=== PATIENT | male | born 1995 | race Caucasian/White ===

== ENCOUNTER 2018-02-05 14:55 | Emergency (ER) | payer SELFPAY ==
[2018-02-05] MEDS ORDERED: TORAdol 30 mg Injection IM ONE (15:25)
[2018-02-05] MEDS ORDERED: TORAdol 30 mg Injection ONE (15:26)
--- NOTE | 2018-02-05 15:29 | ERPHSYRPT ---
- History of Present Illness Time Seen by Provider: 02/05/18 15:15 Source: patient Exam Limitations: no limitations Patient Subjective Stated Complaint: Pt states "I am not sure what happened but my right knee is swollen and it really hurts. I slept in the car funny on the way back, that is the only thing I can think of." Triage Nursing Assessment: PT alert and oriented X3, skin pwd. PT ambulates with a limp. PT right knee slightly swollen and tender. Physician History: 22 y/o male comes to the ER with complaints of right knee pain and swelling for the past 2 days. Pt describes the pain as sharp, as high as a 8/10, worse with movement and pt has not taken any pain meds. Pt states that the pain is worse in the front of the knee as well as the back of the knee. No chest pain, shortness of breath, dizziness or palpitations. No family history of DVT/PE. Method of Injury: unknown Occurred: yesterday Quality: constant Severity of Pain-Max: severe Severity of Pain-Current: severe Lower Extremities Pain: knee: right Modifying Factors: Improves With: nothing Associated Symptoms: none Allergies/Adverse Reactions: No Known Drug Allergies Allergy (Unverified 02/05/18 15:09) Hx Tetanus, Diphtheria Vaccination/Date Given: Yes Hx Influenza Vaccination/Date Given: No Hx Pneumococcal Vaccination/Date Given: No Immunizations Up to Date: Yes - Review of Systems Constitutional: No Fever, No Chills Eyes: No Symptoms Ears, Nose, & Throat: No Symptoms Respiratory: No Cough, No Dyspnea Cardiac: No Chest Pain, No Edema, No Syncope Abdominal/Gastrointestinal: No Abdominal Pain, No Nausea, No Vomiting, No Diarrhea Genitourinary Symptoms: No Dysuria Musculoskeletal: Joint Pain, Joint Swelling, No Back Pain, No Neck Pain Skin: No Rash Neurological: No Dizziness, No Focal Weakness, No Sensory Changes Psychological: No Symptoms Endocrine: No Symptoms All Other Systems: Reviewed and Negative - Past Medical History Pertinent Past Medical History: No - Past Surgical History Past Surgical History: Yes Other Surgical History: tonsils, adnoids, wisdom teeth X 4 - Social History Smoking Status: Current every day smoker How long have you smoked: 8 years Exposure to second hand smoke: Yes Drug Use: marijuana Patient Lives Alone: Yes - Nursing Vital Signs Nursing Vital Signs: Initial Vital Signs Temperature 97.6 F 02/05/18 15:01 Pulse Rate 70 02/05/18 15:01 Respiratory Rate 16 02/05/18 15:01 Blood Pressure 145/85 02/05/18 15:01 O2 Sat by Pulse Oximetry 98 02/05/18 15:01 Pain Scale Pain Intensity 6 - Physical Exam General Appearance: mild distress, alert Eyes, Ears, Nose, Throat Exam: moist mucous membranes Neck Exam: non-tender, supple Cardiovascular/Respiratory Exam: chest non-tender, normal breath sounds, regular rate/rhythm, no respiratory distress Gastrointestinal/Abdominal Exam: non-tender, guarding Back Exam: normal inspection, No vertebral tenderness Hips Exam: bilateral: non-tender, normal inspection, normal range of motion Legs Exam: bilateral leg: non-tender, normal inspection, normal range of motion Knees Exam: right knee: pain, soft tissue tenderness, swelling Ankle Exam: bilateral ankle: non-tender, normal inspection, normal range of motion, no evidence of injury Foot Exam: bilateral foot: non-tender, normal inspection, normal range of motion Neuro/Tendon Exam: normal sensation, normal motor functions Mental Status Exam: alert, oriented x 3, cooperative Skin Exam: normal color, warm, dry SpO2: 98 Oxygen Delivery: Room Air - Course Nursing assessment & vital signs reviewed: Yes Ordered Tests: Active Orders 24 hr Category Date Time Status Crutches STAT Care 02/05/18 16:38 Active Immobilizer STAT Care 02/05/18 16:33 Active KNEE (3 VIEWS) Stat Exams 02/05/18 15:45 Taken D-DIMER QUANTITATION Stat Lab 02/05/18 15:25 Completed Medication Summary Discontinued Medications Generic Name Dose Route Start Last Admin Trade Name Prem PRN Reason Stop Dose Admin Ketorolac Tromethamine 60 mg 02/05/18 15:25 02/05/18 15:31 Toradol 30 Mg Injection IM 02/05/18 15:26 60 mg STAT ONE Administration Ketorolac Tromethamine Confirm 02/05/18 15:26 Toradol 30 Mg Injection Administered 02/05/18 15:27 Dose 60 mg .ROUTE .STK-MED ONE Lab/Rad Data: Laboratory Results 02/05/18 Range/Units 15:25 D-Dimer < 215 L (215-500) ng/mL - Progress Progress: unchanged Progress Note: 08/26/18 16:33 The knee x ray does not show any acute findings. The d-dimer is negative. The patient has minimal relief after receiving toradol. Pt will be d/c home on toradol, knee immobilizer and a referral to orthopedics. - Departure Time of Disposition: 16:36 Departure Disposition: Home Clinical Impression: Bursitis Qualifiers: Bursitis location: knee Knee bursitis location: unspecified Laterality: right Qualified Code(s): M70.51 - Other bursitis of knee, right knee Condition: Stable Critical Care Time: No Referrals: DOCTOR,NO FAMILY [Primary Care Provider] - LYLE BALBUENA [ACTIVE STAFF] - Instructions: Bursitis (DC) Additional Instructions: Follow up with Dr Balbuena in the next few days for additional recommendations. Prescriptions: Ketorolac Tromethamine [Toradol] 10 mg PO QID PRN #20 tablet PRN Reason: Pain
[2018-02-05 16:52] VITALS: BP 112/64; PULSE 68; O2SAT 97
--- NOTE | 2018-02-05 21:16 | XRAY ---
Indication: Pain and swelling. No known injury. Comparison: None 3 views of the right knee demonstrates small distal femur shaft bone cyst and smaller proximal tibial shaft healed fibrous cortical defect. Tiny nonspecific effusion. No other bony, articular, or soft tissue abnormalities. Comment: Preliminary interpretation was made by [facility]. No critical discrepancy.
== END 2018-02-05 16:57 | disposition home or self-care (01) ==
LOC: ED 14:55
DX: M70.51 Other bursitis of knee, right knee (principal); M25.561 Pain in right knee
CPT/HCPCS: 36415; 73562; 85379; 96372; 99284; J1885; L1830